=== PATIENT | male | born 1995 ===

== ENCOUNTER 2017-09-02 17:20 | Emergency (ER) | payer SELFPAY ==
[2017-09-02 17:56] VITALS: BP 150/77; PULSE 76; RESP 16; TEMP 97.9; O2SAT 99
== END 2017-09-02 19:05 | disposition left against medical advice (07) ==
LOC: C.ER 17:20
DX: Z02.89 Encounter for other administrative examinations (principal); F11.10 Opioid abuse, uncomplicated